=== PATIENT | female | born 1995 | race African-American/Black ===

== ENCOUNTER 2017-10-10 13:45 | Emergency (ER) | payer MEDICAID, OTHER | END 2017-10-10 14:25 | disposition home or self-care (01) | LOC: SCSER 13:45 | DX: K04.4 Acute apical periodontitis of pulpal origin (principal) | CPT/HCPCS: 99282 ==

== ENCOUNTER 2018-12-16 20:29 | Emergency (ER) | payer MEDICAID ==
[2018-12-16 20:54] LABS: #Basophils 0.1 thou/uL (0.0-0.2); #Eosinphils 0.5 thou/uL (0.0-0.7); #Lymphocytes 2.7 thou/uL (1.20-3.40); #Monocytes 0.6 thou/uL (0.11-0.59); #Neutrophils 2.7 thou/uL (1.40-6.50); %Basophils 1.4 % (0.0-1.0); %Eosinophils 7.5 % (0.0-10.0); %Lymphocytes 41.5 % (21.0-51.0); %Monocytes 8.9 % (0.0-10.0); %Neutrophils 40.7 % (42.0-75.0); Hemoglobin 13.2 g/dL (12.0-16.0); Mean Corpuscular HGB CONC 33.5 g/dL (32.0-36.0); Mean Corpuscular Hemoglobin 26.7 pg (27.0-31.0); Mean Corpuscular Volume 79.8 fL (78.0-98.0); Mean Platelet Volume 7.3 fL (7.4-10.4); Platelet Count 328 thou/uL (130-400); RBC Distribution Width 15.1 % (11.5-14.5); Red Blood Cell (RBC) Count 4.93 mill/uL (4.20-5.40); White Blood Cell (WBC) Count 6.6 thou/uL (4.8-10.8)
[2018-12-16 21:05] LABS: Bilirubin Negative (Negative); Blood, Urine Large (Negative); Clarity CLOUDY (Clear); Glucose, Urine (Dipstick) Negative (Negative); Leukocyte Small (Negative); Nitrite Negative (Negative); Protein, Urine (Dipstick) 100 mg/dL (Neg-Trace); Specific Gravity, Urine 1.033 (1.002-1.036); pH, Urine 7.5 (5.0-9.0)
[2018-12-16 21:06] LABS: Bacteria/HPF 2+ HPF (None Seen); Squamous Epithelial 21-50 HPF (0-3)
[2018-12-16 21:07] LABS: Pathc Cast-AUWi Flag 3.48 (0-2.49)
[2018-12-16 21:15] LABS: Hyaline Casts/LPF 0-3 HYALINE CAST LPF (0-3 Hyaline)
--- NOTE | 2018-12-16 23:41 | ULT ---
OBSTETRIC SONOGRAM: History: . Pelvic pain and bleeding. FINDINGS: Urinary bladder is decompressed. Gestational sac within the endometrial cavity of the uterus contains a small yolk sac and pole. Heart mote of 83 beats/minute. No free fluid evident within the pel vis. Measurements correlate with 6 weeks 0 days gestational age giving an estimated date of delivery of . Right ovary is 3.7 cm and left 2.8 cm. Each has a normal appearance with good color and spectral dopp ler flow. IMPRESSION: Single intrauterine gestation with estimated gestational age of 6 weeks 0 days. Heart rate is somewha t decreased at 83 beats/minute. No other significant abnormalities are demonstrated. POS: [facility]
[2018-12-17 23:48] LABS: Chlamydia by PCR Not Detected (NotDetected); GC by PCR Not Detected (NotDetected)
== END 2018-12-17 01:00 | disposition home or self-care (01) ==
LOC: ERS 20:29
DX: O20.9 Hemorrhage in early pregnancy, unspecified (principal); Z3A.01 Less than 8 weeks gestation of pregnancy
CPT/HCPCS: 36415; 76856; 81003; 81015; 84702; 85025; 87480; 87491; 87510; 87591; 87660

== ENCOUNTER 2021-10-10 17:29 | Emergency (ER) | payer OTHER ==
[2021-10-10 18:41] LABS: #Eosinphils 0.1 thou/uL (0.0-0.7); #Lymphocytes 1.7 thou/uL (1.20-3.40); #Neutrophils 8.7 thou/uL (1.40-6.50); %Basophils 0.4 % (0.0-1.0); %Eosinophils 1.1 % (0.0-10.0); %Lymphocytes 14.7 % (21.0-51.0); %Monocytes 8.6 % (0.0-10.0); %Neutrophils 75.3 % (42.0-75.0); Mean Corpuscular HGB CONC 33.4 g/dL (32.0-36.0); Mean Platelet Volume 7.3 fL (7.4-10.4); Platelet Count 439 thou/uL (130-400); RBC Distribution Width 15.3 % (11.5-14.5); Red Blood Cell (RBC) Count 5.75 mill/uL (4.20-5.40); White Blood Cell (WBC) Count 11.6 thou/uL (4.8-10.8)
[2021-10-10 18:53] LABS: ALT (SGPT) 12 U/L (8-55); AST (SGOT) 13 U/L (5-34); Albumin 4.5 g/dL (3.5-5.0); Alkaline Phosphatase 103 U/L (40-110); Anion Gap 15 mmol/L (10-20); BUN (Urea Nitrogen) 14 mg/dL (7.0-18.7); Bilirubin, Total 0.5 mg/dL (0.2-1.2); Calc. Creatinine Clearance 0 mL/min (70-130); Calcium 10.4 mg/dL (7.8-10.44); Carbon Dioxide 27 mmol/L (22-29); Chloride 98 mmol/L (98-107); Globulin 3.8 g/dL (2.4-3.5); Glucose 107 mg/dL (70-105); Protein, Total 8.3 g/dL (6.0-8.3); Sodium 137 mmol/L (136-145)
[2021-10-10] MEDS ORDERED: Ondansetron ODT 4 MG TAB ONE (19:20)
[2021-10-10] MEDS ORDERED: Ondansetron PF 4 MG/2 ML Vial ONE (19:47)
[2021-10-10 20:12] LABS: Pregnancy Test - Urine (BHCG) Negative (Negative); Pregu Control Background? CLEAR/WHITE (CLR/WHITE); Pregu Control Bar Appear? YES (CONTROL BAR); Specific Gravity 1.036 (1.002-1.036)
[2021-10-10 20:14] LABS: Bilirubin Negative (Negative); Blood, Urine Negative (Negative); Clarity Turbid (Clear); Glucose, Urine (Dipstick) Normal (Negative); Ketone, Urine 40 mg/dL (Negative); Leukocyte 500 Leu/uL (Negative); Mucous/LPF 1+ LPF (<2+); Nitrite Negative (Negative); Protein, Urine (Dipstick) 100 mg/dL (Neg-Trace); Specific Gravity, Urine 1.036 (1.002-1.036); Urobilinogen Normal mg/dL (Less than 2); pH, Urine 6.5 (5.0-9.0)
[2021-10-10 20:22] LABS: BHCG - Serum Negative (NEGATIVE); Pregs Control Background? CLEAR/WHITE (CLR/WHITE); Pregs Control Bar Appear? YES (CONTROL BAR)
[2021-10-10 20:23] LABS: Bacteria/HPF 2+ HPF (None Seen)
[2021-10-10 20:24] LABS: Trichomonas/HPF 1+ HPF (None Seen); WBC/HPF 21-50 HPF (0-3)
[2021-10-10] MEDS ORDERED: cefTRIAXone\\ROCEPHIN 1 GM VIAL ONE (20:57)
[2021-10-10] MEDS ORDERED: Promethazine HCl 25 MG/ML VIAL ONE (21:17)
== END 2021-10-10 21:52 | disposition home or self-care (01) ==
LOC: ERS 17:29
DX: N39.0 Urinary tract infection, site not specified (principal); R11.2 Nausea with vomiting, unspecified
CPT/HCPCS: 36415; 80053; 81003; 81015; 81025; 83690; 84703; 85025; 86900; 86901; 87086; 96365; 96367; 96375; 96376; J0696; J2405; J2550; Q0162

== ENCOUNTER 2022-08-08 02:31 | Emergency (ER) | payer OTHER ==
[2022-08-08] MEDS ORDERED: HYDROcodone/Acetaminophen 5/325 mg Tablet ONE (04:01)
== END 2022-08-08 04:06 | disposition home or self-care (01) ==
LOC: ERS 02:31
DX: O99.891 Other specified diseases and conditions complicating pregnancy (principal); K08.89 Other specified disorders of teeth and supporting structures; Z3A.24 24 weeks gestation of pregnancy
CPT/HCPCS: 99282